=== PATIENT | female | born 1990 | race Caucasian/White ===

== ENCOUNTER 2018-10-12 16:04 | Emergency (ER) | payer OTHER ==
[~2018-10-12] VITALS: Ht 157.5 cm; Wt 104.3 kg
[2018-10-12] MEDS ORDERED: LITHIUM CARBON300 M6 PO (16:10)
[2018-10-12] MEDS ORDERED: LITHIUM CARBON600 MG PO (16:11)
[2018-10-12] MEDS ORDERED: TRAZODONE HCL100 MG PO (16:11)
[2018-10-12] MEDS ORDERED: MINIPRESS2 MG PO (16:11)
[2018-10-12] MEDS ORDERED: MOBIC7.5 MG PO (17:03)
[2018-10-12 17:30] VITALS: BP 120/81
== END 2018-10-12 17:30 | disposition home or self-care (01) ==
LOC: ER 16:04
DX: S80.01XA Contusion of right knee, initial encounter (principal); F17.210 Nicotine dependence, cigarettes, uncomplicated; Z88.1 Allergy status to other antibiotic agents; Z88.0 Allergy status to penicillin; Z90.89 Acquired absence of other organs; W18.39XA Other fall on same level, initial encounter; Y92.89 Other specified places as the place of occurrence of the external cause; Y93.89 Activity, other specified; Y99.8 Other external cause status

== ENCOUNTER 2019-01-25 14:07 | Emergency (ER) | payer OTHER ==
[~2019-01-25] VITALS: Ht 157.5 cm; Wt 108.9 kg
[~2019-01-25 14:07] MED LIST: LITHIUM CARBON300 M6 PO; LITHIUM CARBON600 MG PO; MINIPRESS2 MG PO; MOBIC7.5 MG PO; TRAZODONE HCL100 MG PO
[2019-01-25 14:09] VITALS: BP 130/85
[2019-01-25] MEDS ORDERED: NORFLEX100 MG PO (15:06)
[2019-01-25] MEDS ORDERED: HYDROCODONE-AP1 EAC6 PO (15:06)
[2019-01-25] MEDS ORDERED: PREDNISONE 10 M10 MG PO (15:06)
== END 2019-01-25 15:20 | disposition home or self-care (01) ==
LOC: ER 14:07
DX: S39.012A Strain of muscle, fascia and tendon of lower back, initial encounter (principal); G89.29 Other chronic pain; F17.210 Nicotine dependence, cigarettes, uncomplicated; F31.9 Bipolar disorder, unspecified; Z88.1 Allergy status to other antibiotic agents; Z88.5 Allergy status to narcotic agent; Z88.0 Allergy status to penicillin; Z88.6 Allergy status to analgesic agent; Z90.89 Acquired absence of other organs; X50.1XXA Overexertion from prolonged static or awkward postures, initial encounter; Y92.009 Unspecified place in unspecified non-institutional (private) residence as the place of occurrence of the external cause; Y93.89 Activity, other specified; Y99.8 Other external cause status

== ENCOUNTER 2019-09-04 11:31 | Emergency (ER) | payer OTHER ==
[~2019-09-04] VITALS: Ht 157.5 cm; Wt 113.4 kg
[~2019-09-04 11:31] MED LIST changes: +HYDROCODONE-AP1 EAC6 PO; +NORFLEX100 MG PO; +PREDNISONE 10 M10 MG PO
[2019-09-04 11:35] VITALS: BP 117/75
[2019-09-04] MEDS ORDERED: MEDROLDOSEPACK PO (12:03)
[2019-09-04] MEDS ORDERED: CYCLOBENZAPRINE5 MG PO (12:03)
[2019-09-04] MEDS ORDERED: NORCO 5-325 TA1 EAC1 PO (12:03)
== END 2019-09-04 12:17 | disposition home or self-care (01) ==
LOC: ER 11:31
DX: G89.29 Other chronic pain (principal); M54.5 Low back pain; F31.9 Bipolar disorder, unspecified; J45.909 Unspecified asthma, uncomplicated; F17.210 Nicotine dependence, cigarettes, uncomplicated; Z88.5 Allergy status to narcotic agent; Z88.8 Allergy status to other drugs, medicaments and biological substances; Z90.89 Acquired absence of other organs; Z88.1 Allergy status to other antibiotic agents; Z88.0 Allergy status to penicillin

== ENCOUNTER 2019-09-28 17:04 | Emergency (ER) | payer OTHER ==
[~2019-09-28] VITALS: Ht 157.5 cm; Wt 113.4 kg
[~2019-09-28 17:04] MED LIST changes: +CYCLOBENZAPRINE5 MG PO; +MEDROLDOSEPACK PO; +NORCO 5-325 TA1 EAC1 PO
[2019-09-28] MEDS ORDERED: NORFLEX100 MG PO (17:44)
[2019-09-28] MEDS ORDERED: PREDNISONE 20 M20 MG PO (17:44)
[2019-09-28 17:46] LABS: URINE BILIRUBIN NEGATIVE (Negative); URINE BLOOD NEGATIVE (Negative); URINE CLARITY CLEAR; URINE COLOR YELLOW; URINE GLUCOSE-RANDOM* NEGATIVE (Negative); URINE KETONES NEGATIVE (Negative); URINE LEUKOCYTES-REFLEX NEGATIVE (Negative); URINE NITRITE-REFLEX NEGATIVE (Negative); URINE PROTEIN (DIPSTICK) NEGATIVE (Negative); URINE SPECIFIC GRAVITY >= 1.030 (1.005-1.035); URINE UROBILINOGEN 0.2 E.U./dl (0.2-1.0)
[2019-09-28] MEDS ORDERED: LIDODERM1 EACH TOP (17:54)
[2019-09-28 18:07] VITALS: BP 130/85
== END 2019-09-28 18:16 | disposition home or self-care (01) ==
LOC: ER 17:04
PROVIDERS: Nurse Practitioner Family
DX: G89.29 Other chronic pain (principal); M54.5 Low back pain; F31.9 Bipolar disorder, unspecified; Z88.1 Allergy status to other antibiotic agents; Z88.0 Allergy status to penicillin; Z88.6 Allergy status to analgesic agent; Z88.5 Allergy status to narcotic agent

== ENCOUNTER 2019-11-06 17:40 | Emergency (ER) | payer OTHER ==
[~2019-11-06] VITALS: Ht 157.5 cm; Wt 113.4 kg
[~2019-11-06 17:40] MED LIST changes: +LIDODERM1 EACH TOP; +PREDNISONE 20 M20 MG PO
[2019-11-06 17:41] VITALS: BP 118/76
[2019-11-06] MEDS ORDERED: NORCO 5-325 TA1 EAC1 PO (18:37)
[2019-11-06] MEDS ORDERED: BACTRIM DS TAB1 EACH PO (18:37)
== END 2019-11-06 18:43 | disposition home or self-care (01) ==
LOC: ER 17:40
DX: L02.411 Cutaneous abscess of right axilla (principal); F31.9 Bipolar disorder, unspecified; F17.210 Nicotine dependence, cigarettes, uncomplicated; Z88.0 Allergy status to penicillin; Z88.5 Allergy status to narcotic agent; Z88.1 Allergy status to other antibiotic agents; Z90.89 Acquired absence of other organs

== ENCOUNTER 2020-01-13 09:22 | Emergency (ER) | payer OTHER ==
[~2020-01-13] VITALS: Ht 157.5 cm; Wt 113.4 kg
[~2020-01-13 09:22] MED LIST changes: +BACTRIM DS TAB1 EACH PO
[2020-01-13] MEDS ORDERED: FLEXERIL PO (10:15)
[2020-01-13] MEDS ORDERED: NORCO 5-325 TA1 EAC1 PO (10:15)
[2020-01-13 10:41] VITALS: BP 127/103
== END 2020-01-13 10:42 | disposition home or self-care (01) ==
LOC: ER 09:22
DX: S39.012A Strain of muscle, fascia and tendon of lower back, initial encounter (principal); R11.2 Nausea with vomiting, unspecified; F17.210 Nicotine dependence, cigarettes, uncomplicated; Z90.49 Acquired absence of other specified parts of digestive tract; Z79.899 Other long term (current) drug therapy; Z79.2 Long term (current) use of antibiotics; Z88.1 Allergy status to other antibiotic agents; Z88.5 Allergy status to narcotic agent; Z88.0 Allergy status to penicillin; Z88.8 Allergy status to other drugs, medicaments and biological substances; X50.0XXA Overexertion from strenuous movement or load, initial encounter; Y93.89 Activity, other specified; Y92.098 Other place in other non-institutional residence as the place of occurrence of the external cause; Y99.8 Other external cause status

== ENCOUNTER 2020-02-22 19:45 | Emergency (ER) | payer OTHER ==
[~2020-02-22] VITALS: Ht 157.5 cm; Wt 113.4 kg
[~2020-02-22 19:45] MED LIST changes: +FLEXERIL PO
[2020-02-22] MEDS ORDERED: NORCO 5-325 TA1 EAC1 PO (20:04)
[2020-02-22] MEDS ORDERED: FLEXERIL PO (20:04)
[2020-02-22 20:09] VITALS: BP 137/94
== END 2020-02-22 20:11 | disposition home or self-care (01) ==
LOC: ER 19:45
DX: M51.26 Other intervertebral disc displacement, lumbar region (principal); F17.210 Nicotine dependence, cigarettes, uncomplicated; Z88.1 Allergy status to other antibiotic agents; Z88.6 Allergy status to analgesic agent